=== PATIENT | male | born 1985 | race Caucasian/White ===

== ENCOUNTER 2018-06-16 04:07 | Emergency (ER) | payer MEDICAID ==
[~2018-06-16] VITALS: Ht 180.3 cm; Wt 81.6 kg
[2018-06-16 04:09] VITALS: Ht 180.3 cm; Wt 81.6 kg
[2018-06-16 05:36] LABS: AMPHETAMINE QUAL UR NONE DETECTED (See below)
[2018-06-16 08:41] VITALS: BP 118/70
== END 2018-06-16 10:04 | disposition home or self-care (01) ==
LOC: ED 04:07
PROVIDERS: Emergency Medicine
DX: F22 Delusional disorders (principal); G47.00 Insomnia, unspecified

== ENCOUNTER 2018-06-16 13:04 | Inpatient (IN) | payer MEDICAID ==
[~2018-06-16] VITALS: Ht 180.3 cm; Wt 81.2 kg
[2018-06-16 13:31] VITALS: Ht 180.3 cm; Wt 81.2 kg
[2018-06-16 14:15] LABS: CALCIUM 9.4 mg/dL (8.5-10.1); CARBON DIOXIDE 25.3 mmol/L (21-32); CHLORIDE SERUM 105 mmol/L (98-107); CREATININE SERUM 1.2 mg/dL (0.7-1.3); GFR1 > 60 mL/min; GLUCOSE SERUM 104 mg/dL (74-106); POTASSIUM SERUM 4.1 mmol/L (3.5-5.1); SODIUM SERUM 139 mmol/L (136-145)
[2018-06-16 14:20] LABS: ALBUMIN 4.3 g/dL (3.4-5.0); ALKALINE PHOSPHATASE 74 U/L (46-116); ALT/SGPT 95 U/L (16-63); AST/SGOT 69 U/L (15-37); BILIRUBIN TOTAL 0.5 mg/dL (0.20-1.00); TOTAL PROTEIN, SERUM 7.8 g/dL (6.4-8.2)
[2018-06-16 14:23] LABS: BASOPHIL % 0.1 % (0-2); PLATELET COUNT 233 x10^3mcL (130-400); RED CELL DISTRIBUTION WIDTH 13.1 % (11.5-14.5)
[2018-06-17 14:38] LABS: MAGNESIUM 2.5 mg/dL (1.8-2.4); PHOSPHOROUS 2.6 mg/dL (2.5-4.9); T3 TOTAL 1.12 ng/mL
[2018-06-17 14:46] LABS: FREE T4 1.09 ng/dL (0.76-1.46); FREE THYROXINE INDEX 2.3 ug/dL (1.4-4.5); T4(THYROXINE) 6.9 ug/dL (4.7-13.3)
[2018-06-17 15:06] LABS: microscopic required? NO
[2018-06-17 15:14] LABS: UA SPECIFIC GRAVITY <=1.005 (1.005-1.035); urine erythrocyte NEGATIVE (NEGATIVE)
[2018-06-17 15:22] LABS: AMPHETAMINE QUAL UR NONE DETECTED (See below)
[2018-06-17 17:52] VITALS: BP 146/93
[2018-06-17 19:58] VITALS: BP 132/84
[2018-06-18 04:18] VITALS: BP 145/92
[2018-06-18 07:29] LABS: CALCIUM 9.2 mg/dL (8.5-10.1); CARBON DIOXIDE 27.8 mmol/L (21-32); CHLORIDE SERUM 104 mmol/L (98-107); GFR1 > 60 mL/min; GLUCOSE SERUM 89 mg/dL (74-106); MAGNESIUM 2.6 mg/dL (1.8-2.4); PHOSPHOROUS 3.1 mg/dL (2.5-4.9); POTASSIUM SERUM 3.5 mmol/L (3.5-5.1); SODIUM SERUM 141 mmol/L (136-145)
[2018-06-18 07:37] LABS: BASOPHIL % 0.4 % (0-2); PLATELET COUNT 223 x10^3mcL (130-400); RED CELL DISTRIBUTION WIDTH 12.6 % (11.5-14.5)
== END 2018-06-18 14:15 | disposition left against medical advice (07) | DRG 52 ==
LOC: ED 13:04 → MU 06-17 13:37
PROVIDERS: Emergency Medicine; Family Medicine
DX: G92 Toxic encephalopathy (principal); N17.0 Acute kidney failure with tubular necrosis; T40.7X1A Poisoning by cannabis (derivatives), accidental (unintentional), initial encounter; F29 Unspecified psychosis not due to a substance or known physiological condition; R45.851 Suicidal ideations; D72.829 Elevated white blood cell count, unspecified; R74.0 Nonspecific elevation of levels of transaminase and lactic acid dehydrogenase [LDH]; Z68.27 Body mass index [BMI] 27.0-27.9, adult; Y92.018 Other place in single-family (private) house as the place of occurrence of the external cause; F17.210 Nicotine dependence, cigarettes, uncomplicated
CPT/HCPCS: 83880; 84439; G0480; Q0092

== ENCOUNTER 2018-06-18 15:09 | Inpatient (IN) | payer MEDICAID ==
[~2018-06-18] VITALS: Ht 180.3 cm; Wt 79.9 kg
[2018-06-18 19:54] LABS: BASOPHIL % 0.4 % (0-2); PLATELET COUNT 236 x10^3mcL (130-400); RED CELL DISTRIBUTION WIDTH 13.1 % (11.5-14.5)
[2018-06-18 19:59] VITALS: BP 131/87
[2018-06-18 20:11] LABS: CALCIUM 8.8 mg/dL (8.5-10.1); CARBON DIOXIDE 25.7 mmol/L (21-32); CHLORIDE SERUM 105 mmol/L (98-107); CREATININE SERUM 0.9 mg/dL (0.7-1.3); GFR1 > 60 mL/min; GLUCOSE SERUM 98 mg/dL (74-106); POTASSIUM SERUM 3.6 mmol/L (3.5-5.1); SODIUM SERUM 138 mmol/L (136-145)
[2018-06-18 20:20] LABS: MAGNESIUM 2.1 mg/dL (1.8-2.4)
[2018-06-18 20:21] LABS: CHOLESTEROL/HDL RATIO 2.4
[2018-06-18 20:23] LABS: T3 TOTAL 1.11 ng/mL
[2018-06-18 20:43] LABS: FREE T4 1.26 ng/dL (0.76-1.46); FREE THYROXINE INDEX 3.3 ug/dL (1.4-4.5); T4(THYROXINE) 9.1 ug/dL (4.7-13.3)
[2018-06-19 05:24] VITALS: BP 134/85
[2018-06-19 08:35] VITALS: BP 138/88
[2018-06-19 16:36] VITALS: BP 128/86
[2018-06-19 21:52] VITALS: BP 131/85
[2018-06-20 05:27] VITALS: BP 102/64
[2018-06-20 07:19] LABS: AMPHETAMINE QUAL UR NONE DETECTED (See below)
[2018-06-20 08:07] VITALS: BP 151/82
[2018-06-20 17:00] VITALS: BP 123/81
[2018-06-20 18:49] VITALS: Ht 180.3 cm; Wt 79.9 kg
== END 2018-06-20 20:57 | disposition left against medical advice (07) | DRG 770 ==
LOC: ED 15:09 → MU 18:56 → EDBEDREQ 18:56 → MU 19:48
PROVIDERS: Family Medicine
DX: F12.10 Cannabis abuse, uncomplicated (principal); N17.0 Acute kidney failure with tubular necrosis; G92 Toxic encephalopathy; R45.851 Suicidal ideations; D72.829 Elevated white blood cell count, unspecified; R74.0 Nonspecific elevation of levels of transaminase and lactic acid dehydrogenase [LDH]; Z68.24 Body mass index [BMI] 24.0-24.9, adult; F17.210 Nicotine dependence, cigarettes, uncomplicated
CPT/HCPCS: 84439; J3490

== ENCOUNTER 2018-07-04 11:15 | Emergency (ER) | payer MEDICAID ==
[~2018-07-04] VITALS: Ht 180.3 cm; Wt 84.4 kg
[2018-07-04 11:32] VITALS: BP 132/78; Ht 180.3 cm; Wt 84.4 kg
== END 2018-07-04 12:31 | disposition home or self-care (01) ==
LOC: ED 11:15
DX: B86 Scabies (principal); F42.9 Obsessive-compulsive disorder, unspecified; F31.9 Bipolar disorder, unspecified; F90.9 Attention-deficit hyperactivity disorder, unspecified type; J45.909 Unspecified asthma, uncomplicated; E11.9 Type 2 diabetes mellitus without complications; I10 Essential (primary) hypertension